=== PATIENT | male | born 1955 | race Caucasian/White ===

== ENCOUNTER 2020-10-24 00:42 | Inpatient (IN) | payer MEDICAID ==
[~2020-10-24] VITALS: Ht 172.7 cm; Wt 97.3 kg
[~2020-10-24 00:42] MED LIST: AGGRENOX 25 MG1 EACH PO; ALLOPURINOL 30300 M2 PO; ATENOLOL 50MG T50 M1 PO; ATORVASTATIN CA40 MG PO; BAYER CHEWABLE81 MG PO; CATAPRES0.2 MG PO; CLONIDINE0.1 PO; FLEXERIL PO; IMDUR 30 MG TAB30 M1 PO; LASIX 40 MG TAB40 M2 PO; LOPRESSOR25 PO; NIASPAN ER 101000 M1 PO; NORVASC5 MG PO; NYSTATIN 100,0015 G1 TOP; POTASSIUM20 PO; PRILOSEC 20 MG20 MG PO; TERBINAFINE15 GM TOP
[2020-10-24 00:47] VITALS: BP 172/88
[2020-10-24 01:37] LABS: ABSOLUTE BASOPHILS 0.1 thou/uL (0.0-0.2); ABSOLUTE EOSINOPHILS 0.2 thou/uL (0.0-0.7); ABSOLUTE LYMPHOCYTES 1.8 thou/uL (0.8-5.3); ABSOLUTE MONOCYTES 0.9 thou/uL (0.0-1.2); ABSOLUTE NEUTROPHILS 4.9 thou/uL (1.6-8.1); BASOPHILS 0.7 %; HEMATOCRIT 37.4 % (42.0-52.0); HEMOGLOBIN 12.7 gm/dL (14.0-18.0); LYMPHOCYTES 22.6 %; MCH 29.4 pg (26.0-34.0); MCHC 33.8 g/dL (28.0-37.0); MCV 87.1 fL (80.0-100.0); MONOCYTES 11.4 %; MPV 7.4 fl. (7.2-11.1); NUCLEATED RBCS 0 /100WBC; PLATELET COUNT* 217 thou/uL (150-400); POLYS 63.3 %; RDW-CV 14.9 % (10.5-14.5); WBC 7.7 thou/uL (4.0-11.0)
[2020-10-24 01:53] LABS: ALBUMIN 3.1 g/dL (3.4-5.0); CALCIUM 9.4 mg/dL (8.5-10.1); CREATININE 1.4 mg/dL (0.6-1.3); MAGNESIUM 1.7 mg/dL (1.8-2.4); POTASSIUM 3.5 mmol/L (3.5-5.1); TOTAL BILIRUBIN 1.5 mg/dL (<0.1-1.0)
[2020-10-24 03:45] LABS: URINE BILIRUBIN NEGATIVE (Negative); URINE BLOOD NEGATIVE (Negative); URINE CLARITY CLEAR; URINE COLOR YELLOW; URINE GLUCOSE-RANDOM NEGATIVE (Negative); URINE KETONES TRACE (Negative); URINE LEUKOCYTES-REFLEX NEGATIVE (Negative); URINE NITRITE-REFLEX NEGATIVE (Negative); URINE PROTEIN NEGATIVE (Negative); URINE SPECIFIC GRAVITY 1.025 (1.005-1.030)
[2020-10-24 04:00] VITALS: BP 155/75
[2020-10-24 08:00] VITALS: BP 132/71
--- NOTE | 2020-10-24 09:06 | EKG ---
[place] [address] ELECTROCARDIOGRAM REPORT Name: JEOVANNY ORTIZ Room: [address] ADM IN .R.#: [id number] Admission: 10/24/20 Attend Phys: Mayank Doyle, Discharge: Date of : 51 Date of Service: 10/24/20 0151 Report #: [id number] THIS REPORT FOR: //name// [facility] ED Test Date: 2020-10-24 Test Time: 01:51:28 Pat Name: JEOVANNY ORTIZ Department: Room: [facility] Gender: M Gis Coordinator: TB : 1955 Requested By: Chandrika Guidry Order Number: [id number] MD: Luis Angel Machado Measurements Intervals [place] Rate: 78 P: 56 VA: 177 QRS: -74 QRSD: 106 T: 64 QT: 423 QTc: 482 Interpretive Statements Sinus rhythm LAD, consider left anterior fascicular block Abnormal R-wave progression, early transition Borderline T wave abnormalities Borderline prolonged QT interval No previous ECG available for comparison Electronically Signed On 10-24-2020 9:06:17 CARD CLOTHIER by Luis Angel Machado [email or web address] <ELECTRONICALLY SIGNED> By: Luis Angel Machado MD, FACC 10/24/20 0906 0 0 Luis Angel Machado MD, FAC /EPI
[2020-10-24 20:00] VITALS: BP 131/64
[2020-10-25 01:02] VITALS: BP 114/53
[2020-10-25 04:24] LABS: HEMATOCRIT 33.7 % (42.0-52.0); HEMOGLOBIN 11.4 gm/dL (14.0-18.0); MCH 29.5 pg (26.0-34.0); MCHC 33.9 g/dL (28.0-37.0); MCV 87.2 fL (80.0-100.0); MPV 7.1 fl. (7.2-11.1); RBC 3.86 mil/uL (4.50-6.00); RDW-CV 14.5 % (10.5-14.5); WBC 8.6 thou/uL (4.0-11.0)
[2020-10-25 04:44] LABS: ALBUMIN 2.5 g/dL (3.4-5.0); CALCIUM 8.6 mg/dL (8.5-10.1); CREATININE 1.4 mg/dL (0.6-1.3); MAGNESIUM 1.8 mg/dL (1.8-2.4); POTASSIUM 3.6 mmol/L (3.5-5.1); TOTAL BILIRUBIN 1.9 mg/dL (<0.1-1.0); TOTAL PROTEIN 5.9 g/dL (6.4-8.2)
[2020-10-25 05:28] VITALS: BP 124/56
[2020-10-25 08:00] VITALS: BP 117/59
[2020-10-25 16:00] VITALS: BP 117/59
[2020-10-25 20:30] VITALS: BP 103/59
[2020-10-26] VITALS: BP 104/52
[2020-10-26 04:00] VITALS: BP 125/60
[2020-10-26 04:27] LABS: HEMATOCRIT 32.7 % (42.0-52.0); MCH 29.5 pg (26.0-34.0); MCHC 33.7 g/dL (28.0-37.0); MCV 87.5 fL (80.0-100.0); MPV 7.9 fl. (7.2-11.1); RBC 3.74 mil/uL (4.50-6.00); RDW-CV 14.5 % (10.5-14.5); WBC 8.3 thou/uL (4.0-11.0)
[2020-10-26 04:51] LABS: ALBUMIN 2.4 g/dL (3.4-5.0); CALCIUM 8.3 mg/dL (8.5-10.1); CREATININE 1.4 mg/dL (0.6-1.3); MAGNESIUM 1.8 mg/dL (1.8-2.4); POTASSIUM 3.4 mmol/L (3.5-5.1); TOTAL BILIRUBIN 1.9 mg/dL (<0.1-1.0)
[2020-10-26 08:00] VITALS: BP 154/76
[2020-10-26 12:27] VITALS: BP 118/45
[2020-10-26 16:41] VITALS: BP 102/65
[2020-10-26 20:30] VITALS: BP 156/81
[2020-10-27] VITALS: BP 131/64
[2020-10-27 03:50] VITALS: BP 115/64
[2020-10-27 08:11] VITALS: BP 134/71
[2020-10-27 12:00] VITALS: BP 104/67
[2020-10-27 20:00] VITALS: BP 132/73
[2020-10-27 23:35] VITALS: BP 107/52
[2020-10-28 04:25] VITALS: BP 125/65
[2020-10-28 04:48] LABS: HEMATOCRIT 34.4 % (42.0-52.0); HEMOGLOBIN 11.8 gm/dL (14.0-18.0); MCH 29.7 pg (26.0-34.0); MCHC 34.4 g/dL (28.0-37.0); MCV 86.4 fL (80.0-100.0); MPV 7.3 fl. (7.2-11.1); RBC 3.98 mil/uL (4.50-6.00); RDW-CV 14.4 % (10.5-14.5); WBC 7.3 thou/uL (4.0-11.0)
[2020-10-28 05:23] LABS: CREATININE 1.4 mg/dL (0.6-1.3); POTASSIUM 3.2 mmol/L (3.5-5.1)
[2020-10-28 08:00] VITALS: BP 121/61
[2020-10-28 15:55] VITALS: BP 113/65
[2020-10-28 21:08] VITALS: BP 115/63
[2020-10-29 08:00] VITALS: BP 130/79
[2020-10-29 14:41] VITALS: BP 130/79
[2020-10-29 14:47] VITALS: BP 130/79
== END 2020-10-29 19:40 | disposition home or self-care (01) | DRG 682 ==
LOC: M.ERS 00:42 → M.2W 03:04 → M.TBA-ER 03:04 → M.2W 04:04 → M.3W 10-28 21:43
PROVIDERS: Emergency Medicine; Family Medicine; Internal Medicine; ADMIT Internal Medicine; ATTEND Internal Medicine
DX: N17.9 Acute kidney failure, unspecified (principal); G93.41 Metabolic encephalopathy; R45.851 Suicidal ideations; I10 Essential (primary) hypertension; E78.5 Hyperlipidemia, unspecified; I25.10 Atherosclerotic heart disease of native coronary artery without angina pectoris; Z20.822 Contact with and (suspected) exposure to COVID-19; E86.0 Dehydration; Z95.1 Presence of aortocoronary bypass graft; Z94.7 Corneal transplant status; I25.2 Old myocardial infarction; Z79.82 Long term (current) use of aspirin; Z79.899 Other long term (current) drug therapy